=== PATIENT | female | born 1970 | race Two or more races ===

== ENCOUNTER 2021-08-10 13:27 | Emergency (ER) | payer OTHER ==
[~2021-08-10] VITALS: Ht 154.9 cm; Wt 74.8 kg
[~2021-08-10 13:27] MED LIST: AML5T PO; ATOR10TA PO; CEPH-322 PO; CHOL20007 PO; ESCI10TA PO; INSLANTI SC; INSUINJ18 SC; LEV100T PO; MAGN400T40 PO; MET50T PO; MYCO500T PO; PANT40TA2 PO; PRE5T PO; ROPI0.254 PO; SODI650T PO; TACR1GRA PO; VALG450T PO
[2021-08-10 14:38] LABS: Basophils # (auto) 0.1 10 ^3/uL (0-0.2); Basophils % (auto) 0.5 % (0.0-2.0); Eosinophils # (auto) 0 10 ^3/uL (0-0.8); Eosinophils % (auto) 0.4 % (0.0-7.0); Hematocrit 31.8 % (36.0-46.0); Hemoglobin 9.8 g/dL (12.2-16.2); Lymphocytes # (auto) 0.5 10 ^3/uL (0.4-5.4); Lymphocytes % (auto) 3.6 % (10.0-50.0); Mean Corpuscular Hemoglobin 30.7 pg (28.0-32.0); Monocytes # (auto) 1.6 10 ^3/uL (0-1.3); Monocytes % (auto) 12.8 % (0.0-12.0); Neutrophils # (auto) 10.6 10 ^3/uL (1.6-8.6); Neutrophils % (auto) 82.7 % (37.0-80.0); Red Blood Cells 3.21 10^6/uL (4.0-5.20); Red Cell Distribution Width 15.7 % (11.8-14.3); White Blood Cell 12.8 10^3/uL (4.4-10.8)
[2021-08-10 14:50] LABS: Albumin 1.6 g/dL (3.4-5.0); Anion Gap 10 (5-15); Blood Urea Nitrogen 31 mg/dL (7-18); Calcium 8.5 mg/dL (8.5-10.1); Carbon Dioxide 21 mmol/L (21-32); Chloride 107 mmol/L (98-107); Glucose 110 mg/dL (74-106); Magnesium 1.7 mg/dL (1.6-2.6); Potassium 5.1 mmol/L (3.5-5.1); Sodium 138 mmol/L (136-145)
[2021-08-10 14:53] LABS: Alanine Aminotransferase 12 U/L (13-56); Aspartate Aminotransferase 12 U/L (15-37); BUN/Creatinine Ratio 8.4; GFR African American 17 mL/min; GFR Non-African American 14 mL/min
[2021-08-10 14:57] LABS: Alkaline Phosphatase 170 U/L (45-117); Bilirubin, Total 0.3 mg/dL (0.2-1.0); Total Protein 5.5 g/dL (6.4-8.2)
[2021-08-10 17:41] VITALS: BP 98/59
== END 2021-08-10 17:28 | disposition home or self-care (01) ==
LOC: ER 13:27 → EDBD 13:27 → ER 17:28
DX: R07.89 Other chest pain (principal); D72.829 Elevated white blood cell count, unspecified; M25.511 Pain in right shoulder; E78.5 Hyperlipidemia, unspecified; E11.22 Type 2 diabetes mellitus with diabetic chronic kidney disease; I12.9 Hypertensive chronic kidney disease with stage 1 through stage 4 chronic kidney disease, or unspecified chronic kidney disease; N18.9 Chronic kidney disease, unspecified; Z79.899 Other long term (current) drug therapy; Z79.4 Long term (current) use of insulin
CPT/HCPCS: 36415; 71045; 73060; 74176; 80053; 83735; 83880; 84484; 85025; 93005